=== PATIENT | male | born 1960 | race American Indian/Alaskan Native ===

== ENCOUNTER 2020-02-25 01:28 | Emergency (ER) | payer MEDICARE ==
--- NOTE | 2020-02-25 02:08 | Emergency Department Report ---
Cindy Doc - Documentation Documentation: 59-year-old -[place] male with gastrointestinal cancer recently disch arge from hospital presents emerged department complaining of another pain flareup that has not resolved with his home oral medications. He request shot of Dilaudid. Reports no fevers chills or sweats has a colostomy right-sided which she states is functioning normally but his pain is just too great This initial assessment/diagnostic orders/clinical plan/treatment(s) is/are subject to change based on patients health status, clinical progression and re- assessment by fellow clinical providers in the ED. Further treatment and workup at subsequent clinical providers discretion. Patient/guardian urged not to elope from the ED as their condition may be serious if not clinically assessed and managed. Initial orders include:
[2020-02-25] MEDS ORDERED: HYDROmorphone 1 MG/1 ML INJ IM ONE (02:09)
[2020-02-25] MEDS ORDERED: ONDANSETRON 4 MG ODT TAB PO ONE (02:25)
[2020-02-25] MEDS ORDERED: oxyCODONE /ACETAMINOPHEN 5-325MG TAB PO ONE (02:25)
--- NOTE | 2020-02-25 02:31 | Emergency Department Report ---
ED Abdominal Pain HPI - General Chief Complaint: Abdominal Pain Stated Complaint: ABDOMINAL PAIN X 1 DAY PUI?: No Time Seen by Provider: 02/25/20 02:25 Source: patient, EMS Mode of arrival: Wheelchair Limitations: Physical Limitation - History of Present Illness Initial Comments: Chief complaint: "I do not know how to put the ostomy bag on." HPI: This is a 59-year-old male with history of stage III stomach cancer on chemo therapy and radiation, hypertension who presents with request to replace ostomy bag. Also patient patient requests Dilaudid shot. He takes Dilaudid daily for abdominal pain related to cancer. However Dilaudid is no longer working as well as it did. He was recently discharged from [facility]. He had surgery resulting in ostomy. He does not know how to change the bag. Consequently he has GI output leaking from the ostomy site. Pain is typical for patient. He has moderate achy right left upper quadrant abdominal pain. He denies fever. Denies vomiting. Patient arrived via EMS. MD Complaint: abdominal pain -: Gradual, week(s) (Pain has been present for several weeks to months. However Dilaudid is not helped his pain recently.) Location: RUQ Radiation: none Severity: moderate Severity scale (0 -10): 7 Quality: aching Consistency: constant Improves With: nothing Worsens With: nothing Context: recent surgery/procedure (GI surgery resulting in ostomy) Associated Symptoms: denies other symptoms - Related Data Previous Rx's Medication Instructions Recorded Last Taken Type Acetaminophen/Codeine [Tylenol #3] 1 tab PO Q6H PRN #21 tab 05/04/14 Unknown Rx Diclofenac Sodium 75 mg PO BID #20 tablet. 05/04/14 Unknown Rx methylPREDNISolone [Medrol Dose 4 mg PO .TAPER #1 tab.ds.pk 05/04/14 Unknown Rx Norberto] Ferrous Sulfate [Feosol] 325 mg PO BID #30 tablet 08/05/19 Unknown Rx Omeprazole 20 mg PO QDAY #20 capsule. 08/05/19 Unknown Rx Allergies Allergy/AdvReac Type Severity Reaction Status Date / Time No Known Allergies Allergy Unverified 05/04/14 09:59 ED Review of Systems ROS: Stated complaint: ABDOMINAL PAIN X 1 DAY Other details as noted in HPI Comment: All other systems reviewed and negative Constitutional: denies: fever Eyes: denies: eye discharge Respiratory: denies: cough, shortness of breath Gastrointestinal: abdominal pain. denies: nausea, vomiting ED Past Medical Hx - Past Medical History Previous Medical History?: Yes Hx Hypertension: Yes Hx of Cancer: Yes (stage 3 stomach cancer) - Surgical History Past Surgical History?: Yes Additional Surgical History: 3 back suegeries, Right knee surgery. colostomy - Social History Smoking Status: Never Smoker Substance Use Type: None - Medications Home Medications: Home Medications Medication Instructions Recorded Confirmed Last Taken Type Acetaminophen/Codeine [Tylenol #3] 1 tab PO Q6H PRN #21 tab 05/04/14 Unknown Rx Diclofenac Sodium 75 mg PO BID #20 tablet. 05/04/14 Unknown Rx methylPREDNISolone [Medrol Dose 4 mg PO .TAPER #1 tab.ds.pk 05/04/14 Unknown Rx Norberto] Ferrous Sulfate [Feosol] 325 mg PO BID #30 tablet 08/05/19 Unknown Rx Omeprazole 20 mg PO QDAY #20 capsule. 08/05/19 Unknown Rx ED Physical Exam - General Limitations: No Limitations General appearance: alert, in no apparent distress, cachectic, other (Appears frail cachectic thin wispy hair) - Head Head exam: Present: atraumatic, normocephalic - Eye Eye exam: Present: normal appearance - ENT ENT exam: Present: mucous membranes moist - Neck Neck exam: Present: normal inspection, full ROM - Respiratory Respiratory exam: Present: normal lung sounds bilaterally. Absent: respiratory distress, wheezes, rales - Cardiovascular Cardiovascular Exam: Present: normal rhythm, tachycardia, normal heart sounds. Absent: systolic murmur, diastolic murmur, rubs, gallop - GI/Abdominal GI/Abdominal exam: Present: soft, other (Ostomy with bag in place right lower quadrant, ostomy bag filled with green liquid GI output). Absent: distended, tenderness, guarding, rebound - Rectal Rectal exam: Present: deferred - Extremities Exam Extremities exam: Present: normal inspection - Neurological Exam Neurological exam: Present: alert, oriented X3 - Psychiatric Psychiatric exam: Present: normal affect, normal mood - Skin Skin exam: Present: warm, dry, intact, normal color. Absent: rash ED Course Vital Signs 02/25/20 01:40 Temperature 97.7 F Pulse Rate 119 H Respiratory 18 Rate Blood Pressure 110/84 O2 Sat by Pulse 100 Oximetry ED Medical Decision Making - Medical Decision Making 1. Ostomy care: I asked nurse to replace ostomy bag and provide patient education. 2. Abdominal pain related to patient's GI cancer: I do not suspect obstruction or inflammatory process. I encourage patient to take pain medication on a consistent basis rather than as needed. Patient received IM Dilaudid in the emergency department. He is discharged home. Critical care attestation.: If time is entered above; I have spent that time in minutes in the direct care of this critically ill patient, excluding procedure time. ED Disposition Clinical Impression: Encounter for ostomy care education, Deficient knowledge of ostomy care, Adenocarcinoma of stomach, stage 3, Abdominal pain Disposition: DC- TO HOME OR SELFCARE Is pt being admited?: No Does the pt Need Aspirin: No Condition: Stable Instructions: Colostomy Home Guide, Adult Referrals: PRIMARY CARE, [Primary Care Provider] - 3-5 Days
[2020-02-25 02:46] VITALS: BP 111/88
== END 2020-02-25 02:51 | disposition home or self-care (01) ==
LOC: ED 01:28
DX: C16.9 Malignant neoplasm of stomach, unspecified (principal); Z43.3 Encounter for attention to colostomy; I10 Essential (primary) hypertension; Z79.899 Other long term (current) drug therapy
CPT/HCPCS: 96372; 99283; J1170; Q0162